=== PATIENT | female | born 1995 | race Caucasian/White ===

== ENCOUNTER 2016-11-18 11:40 | Emergency (ER) | payer SELFPAY ==
[~2016-11-18] VITALS: Ht 167.6 cm; Wt 59.0 kg
[2016-11-18 13:05] VITALS: BP 130/70
--- NOTE | 2016-11-18 13:53 | PHYS DOC ---
Past Medical History Past Medical History: Other Additional Past Medical Histor: "AL x3", "liver problems" Past Surgical History: Cholecystectomy, Tonsillectomy Alcohol Use: None Drug Use: Methamphetamine Adult General Chief Complaint Chief Complaint: ABSCESS HPI HPI Patient is a 21 year old female presents to the emergency room stating that she has multiple abscesses. One is underneath the left axilla. The second one located on the left pelvis area. 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 Patient denies any recent use of methamphetamines. Review of Systems Review of Systems Constitutional: Denies fever or chills [] Eyes: Denies change in visual acuity, redness, or eye pain [] HENT: Denies nasal congestion or sore throat [] Respiratory: Denies cough or shortness of breath [] Cardiovascular: No additional information not addressed in HPI [] GI: Denies abdominal pain, nausea, vomiting, bloody stools or diarrhea [] : Denies dysuria or hematuria [] Musculoskeletal: Denies back pain or joint pain [] Integument: Denies rash or skin lesions. Multiple abscesses Neurologic: Denies headache, focal weakness or sensory changes [] Endocrine: Denies polyuria or polydipsia [] Current Medications Current Medications Current Medications Medications (Trade) Dose Ordered Sig/Hector Start Time Stop Time Status Last Admin Dose Admin Diphtheria/ Tetanus/Acell Pertussis (Boostrix) 0.5 ml ONCE ONCE 11/18/16 14:15 11/18/16 14:16 DC 11/18/16 14:05 0.5 ML Lidocaine/Sodium Bicarbonate (Buffered Lidocaine 1%) 20 ml 1X ONCE 11/18/16 14:00 11/18/16 14:09 DC 11/18/16 14:04 20 ML Allergies Allergies Allergies Coded Allergies Type Severity Reaction Last Updated Verified citalopram Adverse Reaction Intermediate 11/18/16 Yes tramadol Adverse Reaction Unknown 11/18/16 Yes Physical Exam Physical Exam Constitutional: Well developed, well nourished, no acute distress, non-toxic appearance. [] HENT: Normocephalic, atraumatic, bilateral external ears normal, oropharynx moist, no oral exudates, nose normal. [] Eyes: PERRLA, EOMI, conjunctiva normal, no discharge. [] Neck: Normal range of motion, no tenderness, supple, no stridor. [] Cardiovascular:Heart rate regular rhythm, no murmur [] Lungs & Thorax: Bilateral breath sounds clear to auscultation [] Skin: Warm, dry, no erythema, no rash. Patient with 2 abscesses when the size of a golf ball underneath the left axilla, second abscess on the left suprapubic area appears to be the size of a large marble. Both areas appear to be very red with fluctuance noted. Back: No tenderness Extremities: No tenderness, no cyanosis, no clubbing, ROM intact, no edema. [] Neurologic: Alert and oriented X 3, normal motor function, normal sensory function, no focal deficits noted. [] Psychologic: Affect normal, judgement normal, mood normal. [] Current Patient Data Vital Signs Vital Signs Date Time Temp Pulse Resp B/P (MAP) Pulse Ox O2 Delivery O2 Flow Rate FiO2 11/18/16 13:05 98.6 114 20 98 Room Air 98.6 EKG EKG [] Radiology/Procedures Radiology/Procedures [] Course & Med Decision Making Course & Med Decision Making Pertinent Labs and Imaging studies reviewed. (See chart for details) Patient tolerated the procedure well. Patient will be placed on hydrocodone, Bactrim as well. Recommended patient to follow up with primary care physician in the next 2-3 days to have the packing removed. Patient will be discharged home in stable condition recommended warm moist packs to the area 4-5 times a day. Signs and symptoms to return back to emergency department as been provided. Patient agrees with discharge instructions, treatment regimens and follow-up recommendations. All questions and concerns was answered at patient's bedside. [] Dragon Disclaimer Dragon Disclaimer This electronic medical record was generated, in whole or in part, using a voice recognition dictation system. Departure Departure Impression: Primary Impression: Abscess Disposition: 01 HOME, SELF-CARE Condition: STABLE Referrals: NO PCP (PCP) Patient Instructions: Abscess, [id number], Incision and Drainage, Care After Additional Instructions: Activity as tolerated. Keep the dressing clean dry and intact. Do not remove the packing. Return to the emergency department next 2-3 days to have the packing removed. Antibiotics as prescribed. Hydrocodone for severe pain and discomfort. This medication will cause drowsiness do not take any be alert and oriented. Follow-up the primary care physician in the next 2-3 days. Warm moist packs to the area 4-5 times a day. Scripts Hydrocodone/Apap 5-325 (NORCO 5-325 TABLET) 1 Each Tablet 1 TAB PO PRN Q6HRS Y for PAIN, #10 TAB 0 Refills Prov: MADALYN TSE APRN 11/18/16 Sulfamethoxazole/Trimethoprim (BACTRIM DS TABLET) 1 Each Tablet 1 TAB PO BID, #20 TAB Prov: MADALYN TSE APRN 11/18/16 Incision and Drainage Incision and Drainage : Site: left axilla Blade Size: 11 I & D Procedure: betadine prep, sterile drapes applied, sterile dressing applied Progress Site was cleaned with Betadine, sterile drapes was placed around area site was injected with 1% lidocaine buffered with approximately 4 mL. Site was incised with a #11 blade with then watery discharge noted followed by the Yellow discharge. Site was expressed for moderate amount of thick yellow drainage. Site was packed with quarter-inch iodoform gauze. Incision and Drainage Incision and Drainage : Site: left outer pelvic area Blade Size: 11 I & D Procedure: betadine prep Progress Site was cleaned with Betadine, site sterile drapes was applied was injected 1% buffered lidocaine approximately 4 mL, #11 blade was used to incise the area. Initially thin yellow clear drainage was noted with thick yellow drainage to follow. Expressed moderate amount of thick yellow drainage. Quarter-inch Nu Gauze was used to pack the area. MADALYN TSE APRN Nov 18, 2016 13:53
[2016-11-18] MEDS ORDERED: LIDOCAINE 1% / SOD BICARB 8.4% 20 ML VIAL. IJ ONE (14:00)
[2016-11-18] MEDS ORDERED: DIPHTH,PERTUSS(ACELL),TET TOX 0.5 ML DISP.SYRIN. VAX IM ONE (14:15)
[2016-11-18] MEDS ORDERED: HYDR-971 PO (14:36)
[2016-11-18] MEDS ORDERED: SULF1TAB24 PO (14:36)
[2016-11-18] MEDS ORDERED: HYDROcodone/APAP 5/325MG 1 TAB TABLET PO ONE (14:45)
== END 2016-11-18 14:49 | disposition home or self-care (01) ==
LOC: ER 11:40
DX: L02.412 Cutaneous abscess of left axilla (principal); Z88.5 Allergy status to narcotic agent; Z88.8 Allergy status to other drugs, medicaments and biological substances; I25.2 Old myocardial infarction; Z90.49 Acquired absence of other specified parts of digestive tract; Z90.89 Acquired absence of other organs
CPT/HCPCS: 10060; 90471; 90715; 99283-25